=== PATIENT | male | born 1945 | race Caucasian/White ===

== ENCOUNTER 2016-04-13 05:56 | Inpatient (IN) | payer MEDICARE, OTHER ==
[2016-04-07 13:40] VITALS: BMI 27.9
[~2016-04-13 05:56] MED LIST: CEFAZOLIN 1 GM/D5W 50 ML IVPB ONE; CELECOXIB 200 MG CAPSULE PO ONE; GABAPENTIN 300 MG CAPSULE (FP) PO ONE; ROPIVICAINE 0.2%/MORPH PF/KETOROLAC - 51ML DISP.SYRINGE IA ONE; TRANEXAMIC ACID 1000 MG/10 ML VIAL IVPUSH ONE; oxyCODONE HCL 10 MG SUSTAINED ACTING TABLET PO ONE
[2016-04-13] MEDS ORDERED: MIDAZOLAM HCL 2 MG/2 ML SINGLE DOSE VIAL ONE ×2 (06:39→07:14)
[2016-04-13] MEDS ORDERED: DEXAMETHASONE SOD PHOSPHATE/PF 10 MG/ML SDV ONE ×2 (06:39→07:32)
[2016-04-13] MEDS ORDERED: ROPIVACAINE HCL 0.5% 30ML VIAL ONE (06:40)
[2016-04-13] MEDS ORDERED: SODIUM CHLORIDE 0.9% P/F 10 ML VIAL IJ ONE (06:40)
[2016-04-13] MEDS ORDERED: PROPOFOL 20 ML ONE ×3 (07:13)
[2016-04-13] MEDS ORDERED: ePHEDrine SULFATE 50 MG/1 ML AMPULE ONE (07:13)
[2016-04-13] MEDS ORDERED: ceFAZolin SODIUM 1 GM VIAL ONE ×2 (07:14→08:40)
[2016-04-13] MEDS ORDERED: SUCCINYLCHOLINE CHLORIDE 200 MG/10 ML VIAL ONE (07:14)
[2016-04-13] MEDS ORDERED: VANCOMYCIN 1,000 MG VIAL (RESTRICTED TO ID ONLY) ONE (07:14)
--- NOTE | 2016-04-13 07:36 | HP ---
Admitting History and Physical - Admission Chief Complaint: left knee osteoarthritis x years History of Present Illness: 70 year old male presents today in regard to his left knee. Longstanding history of left knee osteoarthritis. Patient complains of pain, difficulty ambulating and limited ROM. He has failed conservative treatment including PO medication, activity modification and injections. Patient would like to proceed with a left total knee arthroplasty. - Past Medical History Cardiovascular: Yes: HTN Gastrointestinal: Yes: GERD Renal/: Yes: BPH - Past Surgical History Additional Past Surgical History: see written H&P in chart - Smoking History Smoking history: Former smoker Have you smoked in the past 12 months: No If you are a former smoker, when did you quit?: 1980S - Alcohol/Substance Use Hx Alcohol Use: No Home Medications - Allergies Allergies/Adverse Reactions: Allergies Allergy/AdvReac Type Severity Reaction Status Date / Time No Known Drug Allergies Allergy Verified 04/07/16 12:59 - Home Medications Home Medications: Ambulatory Orders Amlodipine Besylate 5 mg PO DAILY 04/07/16 Esomeprazole Magnesium [Nexium 24Hr] 40 mg PO DAILY 04/07/16 Finasteride 5 mg PO DAILY 04/07/16 Gabapentin 300 mg PO HS 04/07/16 Lisinopril/Hydrochlorothiazide [Lisinopril-Hctz 20-25 mg Tab] 1 each PO DAILY Losartan Potassium 50 mg PO DAILY 04/07/16 Metoprolol Succinate [Toprol Xl -] 50 mg PO DAILY 04/07/16 Omeprazole 40 mg PO DAILY 04/07/16 Oxybutynin Chloride [Oxybutynin Chloride ER] 10 mg PO DAILY 04/07/16 Oxycodone HCl 5 mg PO QID PRN 04/07/16 Review of Systems - Review of Systems Musculoskeletal: reports: Crepitus (Left knee), Decreased ROM, Joint Pain, Joint Swelling Physical Examination Vital Signs: Vital Signs Temperature 98.2 F 04/13/16 07:10 Pulse Rate 72 04/13/16 07:10 Respiratory Rate 18 04/13/16 07:10 Blood Pressure 108/71 04/13/16 07:10 O2 Sat by Pulse Oximetry (%) Constitutional: Yes: Well Nourished, No Distress Eyes: Yes: Conjunctiva Clear HENT: Yes: Atraumatic, Normocephalic Neck: Yes: Supple Cardiovascular: Yes: Regular Rate and Rhythm Respiratory: Yes: Regular Gastrointestinal: Yes: Soft ...Rectal Exam: Yes: Deferred Musculoskeletal: Yes: Joint Stiffness, Joint Swelling, Other (Limited ROM, left knee) Assessment/Plan 70 year old male with longstanding history of left knee osteoarthritis. Patient has failed conservative treatment. Proceed with a left total knee arthroplasty.
[2016-04-13] MEDS ORDERED: BUPIVACAINE HCL/PF 0.5% (5MG/ML) 10 ML VIAL ONE (08:10)
[2016-04-13] MEDS ORDERED: VANCOMYCIN 1,000 MG VIAL (RESTRICTED TO ID ONLY) IVPB ONE (10:40)
[2016-04-13] MEDS ORDERED: TRANEXAMIC ACID 1000 MG/10 ML VIAL IVPB ONE (10:47)
[2016-04-13] MEDS ORDERED: ROPIVICAINE 0.2%/MORPH PF/KETOROLAC - 51ML DISP.SYRINGE IA ONE (11:00)
[2016-04-13] MEDS ORDERED: ONDANSETRON 4 MG/2 ML VIAL IVPB PRN (11:18)
[2016-04-13] MEDS ORDERED: MAGNESIUM HYDROX 2400MG/30ML ORAL SUSPENSION 30 ML CUP PO PRN (11:18)
[2016-04-13] MEDS ORDERED: MAG HYDROX/AL HYDROX/SIMETH 30 ML UNIT-DOSE CUP PO PRN (11:18)
--- NOTE | 2016-04-13 11:24 | OP ---
Operative Note - Note: Operative Date: 04/13/16 Pre-Operative Diagnosis: left knee OA Operation: left TKA Post-Operative Diagnosis: Same as Pre-op Surgeon: Abdoulaye Campbell [employer] Checker: Abena Hendrix Anesthesia: Spinal Estimated Blood Loss (mls): 100
[2016-04-13] MEDS ORDERED: LACTATED RINGERS SOLUTION 1,000 ML IV SCH (11:30)
[2016-04-13] MEDS ORDERED: PANTOPRAZOLE 40 MG TABLET (FP) PO ONE (12:15)
[2016-04-13] MEDS: KETOROLAC TROMETHAMINE 30 MG/1 ML VIAL IVPUSH SCH ×3 (12:52→20:07)
[2016-04-13] MEDS: traMADol HCL 50 MG TABLET PO SCH ×3 (12:52→20:06)
[2016-04-13] MEDS ORDERED: ACETAMINOPHEN INJECTION 100 ML IVPB ONE (12:53)
[2016-04-13] MEDS ORDERED: PROMETHAZINE HCL 25 MG/1 ML VIAL IVPUSH PRN (13:00)
[2016-04-13] MEDS ORDERED: ACETAMINOPHEN 1000 MG/100 ML VIAL (NON FORMULARY) IVPB ONE (13:01)
[2016-04-13] MEDS ORDERED: oxyCODONE HCL 5 MG TABLET PO PRN (13:01)
[2016-04-13] MEDS ORDERED: ROPIVACAINE 0.2% 400ML 400 ML ML NR ONE (13:01)
[2016-04-13] MEDS: CEFAZOLIN 1 GM/D5W 50 ML IVPB SCH (17:52)
[2016-04-13] MEDS: ACETAMINOPHEN 325 MG TABLET (FP) PO SCH (20:07)
[2016-04-13] MEDS: ASCORBIC ACID 500 MG TABLET (FP) PO SCH (21:33)
[2016-04-13] MEDS: oxyCODONE HCL 10 MG SUSTAINED ACTING TABLET PO SCH (21:33)
[2016-04-13] MEDS: SENNOSIDES/DOCUSATE COMBO (SENNA PLUS) TABLET (UD) PO SCH (21:33)
[2016-04-13] MEDS: GABAPENTIN 300 MG CAPSULE (FP) PO SCH (21:36)
--- NOTE | 2016-04-14 00:43 | SPEC ---
DATE OF OPERATION: 04/13/2016 PREOPERATIVE DIAGNOSIS: Left knee osteoarthritis. POSTOPERATIVE DIAGNOSIS: Left knee osteoarthritis. PROCEDURE: Left total knee replacement. ATTENDING: Phoebe Lemus M.D. LUMBER RACKER: Bettina Jules ANESTHESIA: Spinal plus sedation. ESTIMATED BLOOD LOSS: 100 mL. COMPLICATIONS: None. SPECIMENS: Resected bone was sent for pathology analysis. DISPOSITION: The patient was transferred to the PACU in stable condition. IMPLANTS USED: Baxter Triathlon size 5 femoral component, size 4 tibial component, 13-mm posterior stabilized polyethylene component, and 32 mm patellar component. INDICATION: This is a 70-year-old male who presented to the office complaining of left knee pain. He was seen and examined by Dr. Lemus, diagnosed with severe left knee osteoarthritis. He was initially treated conservatively with medications, injections, and physical therapy, but failed conservative management. He was subsequently indicated for left total knee replacement. The risks, benefits, and alternatives to the procedure were explained to the patient and his son using a manufacturing supervisor in the office, and the patient elected to proceed with the surgery. On the day of surgery, the patient was taken to the operating room and placed on the OR table. Spinal anesthesia was administered by the anesthesiologist. The patient was then positioned supine on the table and all bony prominences were padded. A nonsterile tourniquet was placed on the proximal thigh. The knee was then prepped and draped in the usual sterile fashion and intravenous antibiotics were given for infection prophylaxis. A surgical time-out was then performed with the team, and the patients identity, procedure, side, availability of implants, and the administration of antibiotics was confirmed. The leg was then elevated and exsanguinated, and the tourniquet was inflated. With the knee flexed, a midline incision was made and carried down through the subcutaneous fat to the underlying retinaculum. A medial parapatellar arthrotomy was performed. This was followed by a subperiosteal dissection of the tissue off the proximal, medial tibia. A portion of fat pad was removed from under the patellar tendon, and a small portion of fat was excised off the distal supracondylar femur. The knee was then flexed further and the anterior horn of the lateral meniscus was released from the midline. Next, the anterior and posterior cruciate ligaments were transected. Osteophytes were removed from both the femur and tibia. Grade 4 changes were noted diffusely throughout the knee. Hohmann retractors were then placed around the distal femur. The starting drill was used to enter the intramedullary canal. The starting point had been chosen by checking the radiographs and anatomy. Proper alignment and intramedullary placement was then confirmed by placing the long narrow daniel into the femur. Next, the distal femoral cutting guide was adjusted to 6 degrees of valgus and pinned to the femur. The bone resection was assessed using an sarita-wing. An approximately 10mm distal cut was made and the cut pieces measured. Once this was complete, the sizing guide was used to determine which size femoral component should be used. Next, the appropriately sized 4-in-1 cutting block was then placed at the correct amount of external rotation and the sarita wing was used to assure that there would be no notching of the anterior cortex of the femur. Once this was done, Hohmann retractors were used to protect the medial and lateral collateral ligaments, and all appropriate bone cuts were made. Attention was then turned to the tibia. Hohmann retractors were used to translate the tibia anteriorly and protect the collateral ligaments. The medial and lateral menisci were removed. The extramedullary tibial alignment guide was then placed and adjusted for rotation, varus/valgus, and slope. The height of the cutting block was adjusted to the level of the desired bone resection and then pinned in place. The proximal tibia was then cut with a saw and the bone was removed and measured. Once this was completed, trial components were placed and the knee was taken through a full range of motion. Soft tissue balance was assessed in both flexion and extension and found to be appropriate. The knee was stable throughout the full range of motion. The knee was then put into extension and the patella everted. The synovium around the patella was circumscribed with electrocautery. A caliper was used to measure the patellar thickness and a saw was then used to resect the patella at the chondro-osseous junction. The cut surface was then sized and drilled for the appropriate patellar button, with care taken to medialize it. A trial patella was then placed and the knee was again taken through a full range of motion. The knee was found to have both good balance and good patellar tracking. All of the components were removed except the tibial base plate. The appropriate instrumentation was used to drill and punch the proximal tibia for the keel of the final component. All bony surfaces were then cleaned with pulsatile lavage and dried. Bone cement was then prepared on the back table, and final components were cemented in place in the usual fashion. Extruded cement was removed. The polyethylene trial was placed, the knee was put into extension, and axial pressure was applied for compression while the cement hardened. The patellar button was similarly cemented into place. Once the cement had hardened, the knee was taken through a full range of motion to assess stability, balance, and patellar tracking. This was found to be optimal and the trial polyethylene was exchanged for the appropriately sized real implant. The wound was then thoroughly irrigated with normal saline. No. 1 Polysorb and 0 VLoc 180 barbed sutures were used to close the arthrotomy. No. 1 Polysorb and 2-0 Polysorb sutures were used in the subcutaneous tissues. The skin was closed using both 3-0 VLoc 90 suture in a running subcuticular fashion and SwiftSet skin adhesive. Once this was completed a sterile Aquacel dressing and compressive Maury-wrap was applied. The tourniquet was then deflated and the patient was awakened and taken to the PACU in stable condition. PHOEBE LEMUS M.D. [id number]
[2016-04-14] MEDS: CEFAZOLIN 1 GM/D5W 50 ML IVPB SCH (01:37)
[2016-04-14] MEDS: traMADol HCL 50 MG TABLET PO SCH ×5 (01:41→18:13)
[2016-04-14] MEDS: ACETAMINOPHEN 325 MG TABLET (FP) PO SCH ×4 (01:42→21:25)
[2016-04-14] MEDS: KETOROLAC TROMETHAMINE 30 MG/1 ML VIAL IVPUSH SCH ×3 (01:42→12:21)
[2016-04-14] MEDS: ASPIRIN 325 MG TABLET PO SCH (08:11)
[2016-04-14] MEDS: oxyCODONE HCL 5 MG TABLET PO PRN ×3 (08:12→21:28)
--- NOTE | 2016-04-14 08:46 | PN ---
Progress Note (short form) - Note Progress Note: Pt seen and examined. Comfortable. No complaints. AVSS Selected Entries 04/14/16 06:29 Temperature 98.4 F Pulse Rate 73 Respiratory 19 Rate Blood Pressure 101/56 O2 Sat by Pulse 95 Oximetry (%) Laboratory Tests 04/14/16 04/14/16 07:44 07:44 WBC Pending Sodium Pending Gen: NAD LLE: c/d/i, NVID A/P 70yo male POD#1 s/p L TKA 1. PT/OOB - WBAT LLE 2. Plan for d/c home tomorrow.
[2016-04-14 09:05] LABS: CALCIUM 8.9 mg/dl (8.4-10.2); CREATININE 1.2 mg/dl (0.6-1.3)
[2016-04-14] MEDS: GABAPENTIN 300 MG CAPSULE (FP) PO SCH ×2 (09:17→21:26)
[2016-04-14] MEDS: amLODIPine BESYLATE 5 MG TABLET (FP) PO SCH (09:17)
[2016-04-14] MEDS: METOPROLOL SUCCINATE 50 MG TAB.SR.24H (FP) PO SCH (09:17)
[2016-04-14] MEDS: PANTOPRAZOLE 40 MG TABLET (FP) PO SCH (09:17)
[2016-04-14] MEDS: SENNOSIDES/DOCUSATE COMBO (SENNA PLUS) TABLET (UD) PO SCH ×2 (09:17→21:29)
[2016-04-14] MEDS: ASCORBIC ACID 500 MG TABLET (FP) PO SCH ×2 (09:17→21:26)
[2016-04-14] MEDS: CELECOXIB 200 MG CAPSULE PO SCH (09:17)
[2016-04-14] MEDS: FINASTERIDE 5 MG TABLET (FP) PO SCH (09:17)
[2016-04-14] MEDS: LISINOPRIL 20 MG TABLET (FP) PO SCH (09:17)
[2016-04-14] MEDS: MULTIVITAMINS (DAILY MVI) TABLET (FP) PO SCH (09:17)
[2016-04-14] MEDS: HYDROCHLOROTHIAZIDE 25 MG TABLET (FP) PO SCH (09:18)
[2016-04-14] MEDS: SOLIFENACIN SUCCINATE 5 MG TAB (FP) PO SCH (09:18)
[2016-04-14] MEDS: LOSARTAN POTASSIUM 50 MG TABLET (FP) PO SCH (09:18)
[2016-04-14] MEDS: oxyCODONE HCL 10 MG SUSTAINED ACTING TABLET PO SCH ×2 (09:18→21:27)
[2016-04-14 09:31] LABS: WHITE BLOOD COUNT 13.9 K/mm3 (4.0-10.0)
[2016-04-14 09:32] LABS: MCH 30.7 pg (25.7-33.7); MCHC 33.6 g/dl (32.0-35.9); MEAN CELL VOLUME 91.3 fl (80-96); MEAN PLT VOLUME 9.5 fl (7.5-11.1); PLATELET COUNT 151 K/MM3 (134-434); RDW 12.6 % (11.9-15.9)
--- NOTE | 2016-04-14 10:49 | PN ---
Progress Note (short form) - Note Progress Note: ANESTHESIA POST-OP CHECK 70M s/p left total knee replacement with adductor canal + tibial nerve blocks and spinal anesthesia, POD #1. No acute complaints, denies N/V, backache, headache. Tolerating PO, voiding, pain 2-3/10 and tolerable. Vital Signs Temperature 98.4 F 04/14/16 06:29 Pulse Rate 73 04/14/16 06:29 Respiratory Rate 19 04/14/16 06:29 Blood Pressure 101/56 04/14/16 06:29 O2 Sat by Pulse Oximetry (%) 95 04/14/16 06:29 Active Medications Acetaminophen (Tylenol -) 650 mg PO Q6H [facility] Stop: 04/16/16 19:59 Last Admin: 04/14/16 08:11 Dose: 650 mg Al Hydroxide/Mg Hydroxide (Mylanta Oral Suspension -) 30 ml PO Q4H PRN PRN Reason: DYSPEPSIA Amlodipine Besylate (Norvasc -) 5 mg PO DAILY [facility] Last Admin: 04/14/16 09:17 Dose: 5 mg Ascorbic Acid (Vitamin C -) 500 mg PO BID [facility] Last Admin: 04/14/16 09:17 Dose: 500 mg Aspirin (Asa -) 325 mg PO DAILY@0800 [facility] Last Admin: 04/14/16 08:11 Dose: 325 mg Celecoxib (Celebrex -) 200 mg PO DAILY [facility] Last Admin: 04/14/16 09:17 Dose: 200 mg Fentanyl (Sublimaze Injection -) 50 mcg IVPUSH [id number] PRN PRN Reason: PAIN Stop: 04/16/16 13:01 Finasteride (Proscar -) 5 mg PO DAILY [facility] Last Admin: 04/14/16 09:17 Dose: 5 mg Gabapentin (Neurontin -) 300 mg PO BID [facility] Stop: 04/16/16 21:59 Last Admin: 04/14/16 09:17 Dose: 300 mg Hydrochlorothiazide (Hctz -) 25 mg PO DAILY [facility] Last Admin: 04/14/16 09:18 Dose: 25 mg Lisinopril (Prinivil) 20 mg PO DAILY [facility] Last Admin: 04/14/16 09:17 Dose: 20 mg Losartan Potassium (Cozaar -) 50 mg PO DAILY [facility] Last Admin: 04/14/16 09:18 Dose: 50 mg Magnesium Hydroxide (Milk Of Magnesia -) 30 ml PO PRN PRN PRN Reason: CONSTIPATION Metoprolol Succinate (Toprol Xl -) 50 mg PO DAILY [facility] Last Admin: 04/14/16 09:17 Dose: 50 mg Multivitamins/Minerals/Vitamin C (Tab-A-Vit -) 1 tab PO DAILY [facility] Last Admin: 04/14/16 09:17 Dose: 1 tab Ondansetron HCl (Zofran Injection) 4 mg IVPB Q6H PRN PRN Reason: NAUSEA Oxycodone HCl (Oxycontin -) 10 mg PO BID [facility] Stop: 04/16/16 13:01 Last Admin: 04/14/16 09:18 Dose: 10 mg Oxycodone HCl (Roxicodone -) 5 mg PO Q4H PRN PRN Reason: PAIN Stop: 04/16/16 13:02 Oxycodone HCl (Roxicodone -) 10 mg PO Q4H PRN PRN Reason: PAIN Stop: 04/16/16 13:02 Last Admin: 04/14/16 08:12 Dose: 10 mg Pantoprazole Sodium (Protonix -) 40 mg PO DAILY [facility] Last Admin: 04/14/16 09:17 Dose: 40 mg Senna/Docusate Sodium (Pericolace -) 2 tablet PO BID [facility] Last Admin: 04/14/16 09:17 Dose: 2 tablet Solifenacin (Vesicare -) 5 mg PO DAILY [facility] Last Admin: 04/14/16 09:18 Dose: 5 mg Tramadol HCl (Ultram -) 50 mg PO Q6H [facility] Last Admin: 04/14/16 06:09 Dose: 50 mg Gen: Awake, alert Adductor canal catheter site clean, dry and intact. No apparent anesthesia complications. Pain well controlled. Continue nerve catheter.
[2016-04-15] MEDS: traMADol HCL 50 MG TABLET PO SCH ×2 (01:00→06:33)
[2016-04-15] MEDS: ACETAMINOPHEN 325 MG TABLET (FP) PO SCH ×2 (02:00→09:11)
[2016-04-15] MEDS: oxyCODONE HCL 5 MG TABLET PO PRN (05:19)
[2016-04-15 06:21] VITALS: BP 116/70; PULSE 63; TEMP 98.4
[2016-04-15 08:27] LABS: MCH 30.4 pg (25.7-33.7); MEAN PLT VOLUME 9.8 fl (7.5-11.1); PLATELET COUNT 172 K/MM3 (134-434); RDW 11.9 % (11.9-15.9); WHITE BLOOD COUNT 11.2 K/mm3 (4.0-10.0)
[2016-04-15 08:42] LABS: CALCIUM 9.1 mg/dl (8.4-10.2); CREATININE 1.1 mg/dl (0.6-1.3)
[2016-04-15] MEDS: oxyCODONE HCL 10 MG SUSTAINED ACTING TABLET PO SCH (09:12)
[2016-04-15] MEDS: CELECOXIB 200 MG CAPSULE PO SCH (09:13)
[2016-04-15] MEDS: ASPIRIN 325 MG TABLET PO SCH (09:13)
[2016-04-15] MEDS: GABAPENTIN 300 MG CAPSULE (FP) PO SCH (09:14)
[2016-04-15] MEDS: ASCORBIC ACID 500 MG TABLET (FP) PO SCH (09:14)
[2016-04-15] MEDS: MULTIVITAMINS (DAILY MVI) TABLET (FP) PO SCH (09:14)
[2016-04-15] MEDS: PANTOPRAZOLE 40 MG TABLET (FP) PO SCH (09:15)
[2016-04-15] MEDS: SENNOSIDES/DOCUSATE COMBO (SENNA PLUS) TABLET (UD) PO SCH (09:15)
[2016-04-15] MEDS: SOLIFENACIN SUCCINATE 5 MG TAB (FP) PO SCH (09:15)
[2016-04-15] MEDS: FINASTERIDE 5 MG TABLET (FP) PO SCH (09:16)
[2016-04-15] MEDS: LISINOPRIL 20 MG TABLET (FP) PO SCH (09:16)
[2016-04-15] MEDS: amLODIPine BESYLATE 5 MG TABLET (FP) PO SCH (09:16)
[2016-04-15] MEDS: METOPROLOL SUCCINATE 50 MG TAB.SR.24H (FP) PO SCH (09:17)
[2016-04-15] MEDS: LOSARTAN POTASSIUM 50 MG TABLET (FP) PO SCH (09:17)
[2016-04-15] MEDS: HYDROCHLOROTHIAZIDE 25 MG TABLET (FP) PO SCH (09:17)
--- NOTE | 2016-04-15 09:46 | PN ---
Progress Note (short form) - Note Progress Note: Pt seen and examined. Comfortable. No complaints. AVSS Selected Entries 04/15/16 04/15/16 06:00 06:20 Temperature 98.4 F Pulse Rate 63 Respiratory 18 Rate Blood Pressure 116/70 O2 Sat by Pulse 96 Oximetry (%) Oxygen Delivery Room Air Method Laboratory Tests 04/15/16 04/15/16 07:58 07:58 WBC 11.2 H Hgb 11.5 L Hct 35.0 L Plt Count 172 Sodium 131 L Potassium 4.0 Chloride 96 L Carbon Dioxide 28 Anion Gap 7 L BUN 24 H Creatinine 1.1 Random Glucose 107 H Calcium 9.1 Gen: NAD LLE: c/d/i, NVID A/P 70yo male POD#2 s/p L TKA 1. PT/OOB - WBAT LLE 2. d/c home today.
--- NOTE | 2016-04-15 13:10 | PATH ---
Surgical Pathology Report Patient Name: ASIF RENNER Med. Rec. #: [id number] /Age/Gender: 1945 (Age: 70) / M Account: [id number] Location: [facility] Taken: 04/13/2016 Received: 04/13/2016 Reported: 04/15/2016 Physicians: Abdoulaye Campbell M.D. Specimen(s) Received BONE LEFT KNEE Clinical History Osteoarthritis left knee Final Diagnosis BONE AND SOFT TISSUE, LEFT KNEE, REPLACEMENT: DEGENERATIVE JOINT DISEASE. Electronically Signed Blas Amezquita M.D. Gross Description Received in formalin, labeled "bone left knee," is a 12.0 x 9.0 x 2.5 cm aggregate of multiple morales, irregular portions of bone and soft tissue. The tibial plateau measures 7.2 x 5.5 x 1.7 cm. There is a 4 cm in greatest dimension area of eburnation identified. The remaining articular surfaces are morales-yellow and diffusely granular. The underlying trabecular bone is yellow and hard. Travel Consultant sections are submitted in one cassette, following decalcification. 04/14/201604/14/2016
== END 2016-04-15 11:40 | disposition home health service (06) | DRG 302 ==
LOC: FM/S 05:56
PROVIDERS: ADMIT Student in an Organized Health Care Education/Training Program; ATTEND Student in an Organized Health Care Education/Training Program
PROC: 0SRD0J9 Replacement of Left Knee Joint with Synthetic Substitute, Cemented, Open Approach (ICD-10-PCS; principal; 2016-04-13 09:02)
DX: M17.12 Unilateral primary osteoarthritis, left knee (principal); I10 Essential (primary) hypertension; Z87.891 Personal history of nicotine dependence
CPT/HCPCS: 36415; 73560-TC-LT; 80048; 85027; 88305-TC; 88311-TC; 94010; 94760; 97116-GP; 97162-PG

== ENCOUNTER 2022-01-05 10:02 | Day surgery (SDC) | payer MEDICARE ==
[2022-01-04] MEDS: KETOROLAC TROMETHAMINE 30 MG/1 ML VIAL IVPUSH SCH
[2022-01-05] MEDS: ACETAMINOPHEN 500 MG TABLET (FP) PO SCH ×2 (00:46→11:24)
[2022-01-05 07:19] VITALS: BMI 27.9
[~2022-01-05 10:02] MED LIST changes: +BUPIVACAINE HCL 50 ML ONE; +BUPIVACAINE LIPOSOME/PF (EXPAREL) 266 MG/20 ML VIAL ONE; -CEFAZOLIN 1 GM/D5W 50 ML IVPB ONE; -CELECOXIB 200 MG CAPSULE PO ONE; +DEXAMETHASONE SOD PHOSPHATE 4 MG/1 ML VIAL ONE; +EPINEPHrine/PF 1 MG/1 ML (1:1,000) AMPULE ONE; -GABAPENTIN 300 MG CAPSULE (FP) PO ONE; +MIDAZOLAM HCL 2 MG/2 ML SINGLE DOSE VIAL ONE; +ONDANSETRON 4 MG/2 ML VIAL ONE; +PROPOFOL 40 ML ONE; +ROCURONIUM BROMIDE 50 MG/5 ML SYRINGE ONE; -ROPIVICAINE 0.2%/MORPH PF/KETOROLAC - 51ML DISP.SYRINGE IA ONE; +SODIUM CHLORIDE 0.9% P/F 10 ML VIAL IJ ONE; +SUCCINYLCHOLINE CHLORIDE 200 MG/10 ML SYRINGE ONE; -TRANEXAMIC ACID 1000 MG/10 ML VIAL IVPUSH ONE; +TRANEXAMIC ACID 1000 MG/10 ML VIAL ONE; +VANCOMYCIN 1,000 MG VIAL (RESTRICTED TO ID ONLY) ONE; +ceFAZolin SODIUM 1 GM VIAL ONE; -oxyCODONE HCL 10 MG SUSTAINED ACTING TABLET PO ONE
[2022-01-05] MEDS ORDERED: CEFAZOLIN 2 GM in DEXTROSE 5%-WATER - 50 ML IVPB ONE (11:00)
[2022-01-05] MEDS ORDERED: LACTATED RINGERS SOLUTION 1,000 ML IV SCH (11:00)
[2022-01-05] MEDS ORDERED: ONDANSETRON 4 MG/2 ML VIAL IVPUSH PRN (11:00)
[2022-01-05] MEDS ORDERED: MAG HYDROX/AL HYDROX/SIMETH 30 ML UNIT-DOSE CUP PO PRN (11:00)
[2022-01-05] MEDS ORDERED: TRANEXAMIC ACID 1000 MG/10 ML VIAL IVPUSH ONE (11:00)
[2022-01-05] MEDS ORDERED: oxyCODONE HCL 5 MG TABLET PO PRN ×2 (11:12)
[2022-01-05] MEDS ORDERED: ACETAMINOPHEN 1000 MG/100 ML BAG IVPB ONE (11:12)
[2022-01-05] MEDS ORDERED: KETOROLAC TROMETHAMINE 30 MG/1 ML VIAL ONE (11:17)
[2022-01-05] MEDS ORDERED: ACETAMINOPHEN INJECTION 100 ML IVPB ONE (11:17)
[2022-01-05] MEDS: KETOROLAC TROMETHAMINE 30 MG/1 ML VIAL IVPUSH SCH (11:18)
[2022-01-05] MEDS: CEFAZOLIN SODIUM 2 GM in DEXTROSE 5%-WATER 100 ML IVPB SCH (16:30)
[2022-01-05] MEDS: SENNOSIDES/DOCUSATE COMBO (SENNA PLUS) TABLET (UD) PO SCH (21:25)
[2022-01-05] MEDS ORDERED: LATANOPROST 0.005% OPHTH SOLN 2.5ML BOTTLE OU SCH (22:00)
[2022-01-05] MEDS ORDERED: GABAPENTIN 300 MG CAPSULE PO SCH (22:00)
[2022-01-05] MEDS ORDERED: amLODIPine BESYLATE 5 MG TABLET (FP) PO SCH (22:00)
[2022-01-06] MEDS: CEFAZOLIN SODIUM 2 GM in DEXTROSE 5%-WATER 100 ML IVPB SCH (00:30)
[2022-01-06] MEDS: ACETAMINOPHEN 500 MG TABLET (FP) PO SCH ×2 (05:00)
[2022-01-06] MEDS ORDERED: VANCOMYCIN 1 GM in D5W (PRE-DOCKED) 1,000 MG/250 ML IVPB ONE (06:15)
[2022-01-06] MEDS ORDERED: ASPIRIN 325 MG TABLET PO SCH (08:00)
[2022-01-06 08:14] LABS: HEMATOCRIT 32.2 % (35.4-49); HEMOGLOBIN 10.8 G/dL (11.7-16.9); MCH 31.4 pg (25.7-33.7); MCHC 33.4 g/dl (32.0-35.9); MEAN CELL VOLUME 93.9 fl (80-96); MEAN PLT VOLUME 9.5 fl (7.5-11.1); PLATELET COUNT 151.7 10^3/uL (134-434); RBC 3.43 10^6/uL (4.00-5.60); RDW 12.8 % (11.9-15.9); WHITE BLOOD COUNT 12.9 10^3/uL (4.0-10.8)
[2022-01-06 08:16] LABS: CALCIUM 8.3 mg/dl (8.5-10); CREATININE 1.2 mg/dl (0.55-1.3)
[2022-01-06 08:17] VITALS: BP 144/68; PULSE 61; RESP 20; TEMP 98.1
[2022-01-06] MEDS ORDERED: TAMSULOSIN HCL 0.4 MG CAP PO SCH (08:30)
[2022-01-06] MEDS: SENNOSIDES/DOCUSATE COMBO (SENNA PLUS) TABLET (UD) PO SCH (09:17)
[2022-01-06] MEDS ORDERED: PANTOPRAZOLE 40 MG TABLET PO SCH (10:00)
[2022-01-06] MEDS ORDERED: SOLIFENACIN SUCCINATE 5 MG TAB PO SCH (10:00)
[2022-01-06] MEDS ORDERED: CYCLOBENZAPRINE HCL 5 MG TABLET PO SCH (10:00)
[2022-01-06] MEDS ORDERED: OXYBUTYNIN CHLORIDE 5 MG TABLET PO SCH (10:00)
== END 2022-01-06 12:18 | disposition home or self-care (01) ==
LOC: FASUSAT 10:02 → FM/S 11:59 → FASUSAT 01-06 12:18
PROVIDERS: ATTEND Internal Medicine
PROC: 0LS40ZZ Reposition Left Upper Arm Tendon, Open Approach (ICD-10-PCS; 2022-01-05)
PROC: 0LS40ZZ Reposition Left Upper Arm Tendon, Open Approach (ICD-10-PCS; 2022-01-05)
PROC: 0RRK0JZ Replacement of Left Shoulder Joint with Synthetic Substitute, Open Approach (ICD-10-PCS; principal; 2022-01-05 08:42)
DX: M19.012 Primary osteoarthritis, left shoulder (principal); M75.22 Bicipital tendinitis, left shoulder
CPT/HCPCS: 23430; 23472; C1776; 36415; 73030-TC-LT-FY; 80048; 85027; 88305-TC; 88311-TC; 94760; 97116-GP; 97162-GP; C1889